=== PATIENT | female | born 1980 | race African-American/Black ===

== ENCOUNTER 2020-06-26 06:48 | Emergency (ER) | payer MEDICARE ==
[~2020-06-26] VITALS: Ht 165.1 cm; Wt 138.3 kg
[2020-06-26] MEDS ORDERED: HYDROCODONE/APAP 5MG-325MG TAB PO STA (07:27)
[2020-06-26] MEDS ORDERED: SERTRALINE HCL50 MG PO (07:34)
[2020-06-26] MEDS ORDERED: FEROSUL325 MG PO (07:34)
[2020-06-26] MEDS ORDERED: ATORVASTATIN CA20 MG PO (07:34)
[2020-06-26] MEDS ORDERED: POTASSIUM600 MG (07:34)
[2020-06-26] MEDS ORDERED: ELIQUIS5 MG PO (07:34)
[2020-06-26] MEDS ORDERED: LISINOPRIL10 MG PO (07:34)
[2020-06-26] MEDS ORDERED: TORSEMIDE20 MG PO (07:34)
[2020-06-26] MEDS ORDERED: METOLAZONE5 MG PO (07:34)
[2020-06-26] MEDS ORDERED: ISOSORBIDE MONO30 MG PO (07:34)
[2020-06-26] MEDS ORDERED: CARVEDILOL12.5 MG PO (07:34)
[2020-06-26] MEDS ORDERED: HYDRALAZINE HCL10 MG PO (07:34)
[2020-06-26] MEDS ORDERED: BUSPIRONE HCL10 MG PO (07:34)
[2020-06-26] MEDS ORDERED: HYDROCODONE/APAP 5MG-325MG TAB ONE (07:45)
[2020-06-26] MEDS ORDERED: CLONIDINE HCL 0.1 MG TAB ONE (08:44)
[2020-06-26] MEDS ORDERED: KETOROLAC TROMETHAMINE 60 MG/2 ML VIAL IM ONE (08:45)
[2020-06-26] MEDS ORDERED: CLONIDINE HCL 0.2 MG TAB PO ONE (08:45)
[2020-06-26] MEDS ORDERED: PREDNISONE 20 MG TAB PO ONE (08:45)
[2020-06-26] MEDS ORDERED: PREDNISONE20 MG PO (08:51)
[2020-06-26] MEDS ORDERED: CLONIDINE HCL0.1 M1 PO (08:56)
[2020-06-26] MEDS ORDERED: CLONIDINE HCL 0.1 MG TAB PO ONE (09:00)
[2020-06-26 09:10] VITALS: BP 189/111
== END 2020-06-26 09:20 | disposition home or self-care (01) ==
LOC: FSED 07:18
DX: M72.2 Plantar fascial fibromatosis (principal); M77.8 Other enthesopathies, not elsewhere classified; I10 Essential (primary) hypertension; F17.210 Nicotine dependence, cigarettes, uncomplicated
CPT/HCPCS: 73630; 96372; 99283; J1885; J7512